=== PATIENT | female | born 1935 | race Caucasian/White ===

== ENCOUNTER → 2017-02-25 11:19 | Outpatient (CLI) | payer MEDICARE, OTHER | END | disposition home or self-care (01) | LOC: D.RAD 11:19 | DX: P13.1 Other birth injuries to skull (principal) ==

== ENCOUNTER → 2018-07-31 15:41 | Outpatient (CLI) | payer MEDICARE, OTHER | END | disposition home or self-care (01) | LOC: D.LAB 15:41 | DX: M25.562 Pain in left knee (principal); R10.2 Pelvic and perineal pain ==